=== PATIENT | male | born 1945 | race Caucasian/White ===

== ENCOUNTER 2016-10-07 13:28 | Emergency (ER) | payer OTHER ==
[~2016-10-07] VITALS: Ht 182.9 cm; Wt 65.0 kg
[2016-10-07 13:42] VITALS: BP 181/78; PULSE 88; RESP 16; TEMP 98; O2SAT 97
[2016-10-07] MEDS ORDERED: PROPARACAINE HCL 0.5% OPHT SOLN 15 ML BTL RIGHT EYE ONE (13:45)
--- NOTE | 2016-10-07 13:49 | PD ---
HPI Chief Complaint: Eye Problems/Injury Time Seen by Provider: 13:44 Travel History International Travel<30 days: No Contact w/Intl Traveler<30days: No History of Present Illness HPI Patient comes emergency Department from assisted living facility where he resides complaining of right eye pain. Patient is legally blind normally cannot see much secondary to cataracts. Patient states last night he had to go to the bathroom and could not anyone to help and after waiting as long as he could he finally tried getting up by himself and became unsteady on his feet and fell hitting his right eye. Patient reports associated headache and photosensitivity. Pain is worse with movement of his right eye. Describes pain as a burning like sensation. Denies any chest pain pre-or post fall, loss consciousness, shortness of breath, fevers, or neck pain. Patient is on Plavix and aspirin. Patient has a history of type 2 diabetes, sepsis, subacute osteomyelitis, BPH, blindness, hyperlipidemia, CAD, hypertension, MRSA, pacemaker, and anemia. PFSH Past Medical History Atrial Fibrillation: Yes Social History Alcohol Use: No Tobacco Use: No Substance Use: No Allergies-Medications (Allergen,Severity, Reaction): Coded Allergies: Scallop (Verified Allergy, Unknown, 10/07/16) Fleetwood (Verified Allergy, Unknown, 10/07/16) Sulfa (Verified Allergy, Unknown, 10/07/16) Reported Meds & Prescriptions Reported Meds & Active Scripts Active Erythromycin Opth Oint 5 Mg/Gm Oint 1 Applic RIGHT EYE QID Reported Vitamin B Complex (B-Complex Vitamins) 1 Tab 1 Tab PO DAILY Thiamine Hydrochloride (Thiamine HCl) 1 Pow Pow 100 Mg PO DAILY Selenium 200 Mcg Tab 200 Mg PO DAILY Entresto (Sacubitril-Valsartan) 24-26 Mg Tab 1 Tab PO DAILY Percocet (Oxycodone-Acetaminophen) 5-325 mg Tab 2 Tab PO Q6H PRN Mexiletine (Mexiletine HCl) 150 Mg Cap 150 Mg PO Q8H Melatonin 5 Mg Tab 3 Mg PO HS Magnesium Oxide 500 Mg Tab 500 Mg PO BID Lisinopril 2.5 Mg Tab 2.5 Mg PO DAILY Levemir Inj (Insulin Detemir) 1,000 unit/ 10 ML Vial 8 Units SQ DAILY Do not mix with any other Insulin. Furosemide 20 Mg Tab 20 Mg PO DAILY Ferrous Sulfate 325 Mg Tab 325 Mg PO DAILY Clopidogrel (Clopidogrel Bisulfate) 75 Mg Tab 75 Mg PO DAILY Cilostazol 50 Mg Tab 50 Mg PO BID Vitamin D-3 (Cholecalciferol) 1,000 Unit Tab 5,000 Units PO DAILY Carvedilol 3.125 Mg Tab 3.125 Mg PO BID Atorvastatin (Atorvastatin Calcium) 80 Mg Tab 80 Mg PO HS Aspirin 81 Mg Chew 81 Mg CHEW DAILY Review of Systems Except as stated in HPI: all other systems reviewed are Neg Physical Exam Narrative GENERAL: Well-developed, well nourished, in no acute distress, and non-ill appearing. SKIN: Focused skin assessment warm and dry. Multiple areas of ecchymosis noted right lower extremity with wounds are covered with dry clean dressings right lower extremity and bilateral feet. PICC line noted right upper extremity. HEAD: Atraumatic. Normocephalic. EYES: Pupils equal and round. EOMI. No scleral icterus. No injection or drainage. Patient reports worsening pain and light right eye. Apportionment corneal abrasion noted. No obvious foreign body. No hyphema. Patient reports tenderness along the left lower lateral periorbital. ENT: No nasal bleeding or discharge. Mucous membranes pink and moist. NECK: Trachea midline. No midline tenderness or crepitus over cervical spine.. Supple. No nuclear rigidity. RESPIRATORY: No accessory muscle use. No respiratory distress. MUSCULOSKELETAL: No obvious deformities. No clubbing. No cyanosis. No edema. Full range of motion. NEUROLOGICAL: Awake and alert. No obvious cranial nerve deficits. Motor grossly within normal limits. Normal speech. PSYCHIATRIC: Appropriate mood and affect; insight and judgment normal. Data Data Last Documented VS Vital Signs Date Time Temp Pulse Resp B/P Pulse Ox O2 Delivery O2 Flow Rate FiO2 10/07/16 16:00 84 16 178/76 97 Room Air 10/07/16 13:42 98.0 Orders Proparacaine 0.5% Opth Soln (Alcaine 0.5 (10/07/16 13:45) Ct Brain W/O Iv Contrast(Rout) (10/07/16 ) Ct Facial Bones W/O Iv Cont (10/07/16 ) Ct Cerv Spine W/O Contrast (10/07/16 ) Oxycodone-Acetamin 5-325 Mg (Percocet (10/07/16 15:45) MDM Medical Decision Making Medical Screen Exam Complete: Yes Emergency Medical Condition: Yes Interpretation(s) CT head read by the radiologist shows: Right parietal lobe encephalomalacia. No acute intracranial findings. CT cervical spine read by the radiologist shows: 1. No evidence of fracture. 2. Multilevel degenerative findings. 3. Bilateral pleural effusions partially visualized. CT maxillofacial read by radiologist shows: No evidence of fracture. Differential Diagnosis Fracture, intracranial hemorrhage, strain, abrasion, ulcer, foreign body, other Narrative Course Patient was given a dose of his home Percocet for pain control. Patient reports he last had this around 9:00 this morning. The patient has a small corneal abrasion. The patient was Martinez lamp examined and stained. No evidence of foreign body by history or exam. There is no evidence of iritis, glaucoma, preseptal cellulitis, periorbital or orbital cellulitis. The diagnosis and problem was discussed with the patient, and the need for frequent ophthalmologic antibiotics was discussed with the patient. The patient was instructed to follow up with ophthalmology next 2-3 days or return here if worsened, increased pain, decreased vision, swelling around the eye or as needed. The patient agreed with plan. Patient presents with closed head injury. There was no evidence of cranial or intracranial injury noted on CT of the head and no evidence of fracture or injury to cervical spine on C-spine CT. The patient has been behaving normally and no notable altered mental status. Zak score of 15. The neurologic exam is normal. The patient is awake and aware and motor sensory exams are normal. There is no clinical evidence to support intracranial injury or bleed. There is no significant jaw pain or tenderness. There is no malocclusion noted subjectively or objectively. There is no bruising under the tongue. There is no significant swelling, tenderness, bruising or deformity of the face to suggest fractures of face or nose. There is no nasal discharge or bleeding and no septal hematoma. There are no visual problems or significant bruising under eyes or midface. There is no evidence to suggest entrapment and there is no facial nerve palsy. There is no flattening of the cheek or altered sensation underneath the eye. The facial bones are stable and nonmobile. The airway is intact. CT of the facial bones revealed no evidence of fracture or acute injury. Findings were discussed with the patient. The patient will follow up with PCP. Patient in no obvious distress upon re-evaluation. All pertinent Radiology result(s) discussed with patient. Discussed patient with Dr. Veronica, who saw and evaluated the patient and is in agreement with plan of care and disposition. Any questions/concerns in reference to patient diagnosis/condition discussed and clarified prior to patient's discharge. Reinforced sheer importance of close follow up with patient's primary physician or primary care clinic. Instructed patient to return to ED immediately, if symptoms return/worsen. Pt showed understanding of above instructions. Further instructions and recommendations were detailed in discharge paperwork. Pt left without difficulty out of ED at discharge. Procedures Procedure Narrative Verbal consent was obtained. Affected eye was anesthetized using proparacaine. Fluorescein staining and Wood lamp exam performed with uptake seen. Negative Bandar sign. No hyphema, hyperemia, or rust ring. Eyelid was everted with no foreign body noted. No tenderness bilateral temporal arteries to palpation. Intraocular eye pressure was measured 3 and found to be 12, 14, and 14. Patient tolerated procedure well. There is no complications. Diagnosis Primary Impression: Corneal abrasion, right Qualified Code: S05.01XA - Corneal abrasion, right, initial encounter Additional Impressions: Closed head injury Qualified Code: S09.90XA - Closed head injury, initial encounter Encephalomalacia Pleural effusion Referrals: Anabelle Wang MD Patient Instructions: Corneal Abrasion (ED), General Instructions, Head Injury (ED) Additional Instructions: Follow-up with your primary care physician and/or topstitcher lockstitch in 2-3 days for reevaluation. Follow-up through primary care doctor for evaluation of incidental findings noted on CT today. Take all medication as prescribed. Return to the emergency department if symptoms get worse. Med/Other Pt SpecificInfo: Prescription(s) given Scripts Erythromycin Opth Oint 5 Mg/Gm Oint1 Applic RIGHT EYE QID #1 TUBE Ref 0 Prov:Aspen Veronica DO 10/07/16 Disposition: 01 DISCHARGE HOME Condition: Stable Bladimir Foster October 07, 2016 13:49
[2016-10-07] MEDS ORDERED: MAGN500T2 PO (15:12)
[2016-10-07] MEDS ORDERED: SELE1TAB PO (15:12)
[2016-10-07] MEDS ORDERED: MEXI150C PO (15:12)
[2016-10-07] MEDS ORDERED: SACU1TAB PO (15:12)
[2016-10-07] MEDS ORDERED: MELA5TAB15 PO (15:12)
[2016-10-07] MEDS ORDERED: LISI2.5T3 PO (15:12)
[2016-10-07] MEDS ORDERED: LEVEMIR SQ (15:12)
[2016-10-07] MEDS ORDERED: CILO50TA PO (15:12)
[2016-10-07] MEDS ORDERED: VITATAB11 PO (15:12)
[2016-10-07] MEDS ORDERED: VITA10003 PO (15:12)
[2016-10-07] MEDS ORDERED: PERC5TAB12 PO (15:12)
[2016-10-07] MEDS ORDERED: FURO20TA PO (15:12)
[2016-10-07] MEDS ORDERED: FERR325T PO (15:12)
[2016-10-07] MEDS ORDERED: CLOP75TA PO (15:12)
[2016-10-07] MEDS ORDERED: ATOR1TAB18 PO (15:12)
[2016-10-07] MEDS ORDERED: [UNRECOGNIZED DRUG - CODE] PO (15:12)
[2016-10-07] MEDS ORDERED: CARV3.12 PO (15:12)
[2016-10-07] MEDS ORDERED: ASPI81CH CHEW (15:12)
--- NOTE | 2016-10-07 15:14 | RADRPT ---
EXAM DATE/TIME: 10/07/2016 14:24 [facility] COMPARISON: No previous studies available for comparison. INDICATIONS : Fall today, contusion to right eye. RADIATION DOSE: 28.61 CTDIvol (mGy) MEDICAL HISTORY : Cardiovascular disease. Hypertension. SURGICAL HISTORY : None. ENCOUNTER: Initial ACUITY: 1 day PAIN SCALE: 5/10 LOCATION: Right frontal head TECHNIQUE: Multiple contiguous axial images were obtained of the head. Using automated exposure control and adj ustment of the mA and/or kV according to patient size, radiation dose was kept as low as reasonably a chievable to obtain optimal diagnostic quality images. FINDINGS: CEREBRUM: There is evidence of focal encephalomalacia in the right parietal lobe indicating old insult. The teddy tricles are normal for age. No evidence of midline shift, mass lesion, hemorrhage or acute infarctio n. No extra-axial fluid collections are seen. POSTERIOR FOSSA: The cerebellum and brainstem are intact. The 4th ventricle is midline. The cerebellopontine angle i s unremarkable. EXTRACRANIAL: The visualized portion of the orbits is intact. SKULL: The calvaria is intact. No evidence of skull fracture. CONCLUSION: Right parietal lobe encephalomalacia. No acute intracranial findings. Tristan Meyer MD on October 07, 2016 at 15:11 Board Certified Radiologist. This report was verified electronically.
--- NOTE | 2016-10-07 15:18 | RADRPT ---
EXAM DATE/TIME: 10/07/2016 14:24 [facility] COMPARISON: No previous studies available for comparison. INDICATIONS : Fall today, contusion to right eye. RADIATION DOSE: 22.30 CTDIvol (mGy) MEDICAL HISTORY : Hypertension. Cardiovascular disease SURGICAL HISTORY : None. ENCOUNTER: Initial ACUITY: 1 day PAIN SCALE: 5/10 LOCATION: Bilateral neck TECHNIQUE: Volumetric scanning of the cervical spine was performed. Multiplanar reconstructions in the sagittal, coronal and oblique axial planes were performed. Using automated exposure control and adjustment o f the mA and/or kV according to patient size, radiation dose was kept as low as reasonably achievable to obtain optimal diagnostic quality images. FINDINGS: VERTEBRAE: Normal vertebral body height. ALIGNMENT: No evidence of subluxation. C2-C3: Severe left-sided facet arthrosis. No evidence of focal disc protrusion. Central canal normal diamete r. Neural foraminal diameters within normal limits. C3-C4: Severe bilateral facet arthrosis and broad-based disc osteophyte complex. Moderate bilateral neural f oraminal narrowing. Central canal diameter within normal limits. C4-C5: Broad-based disc osteophyte complex. Moderate bilateral facet arthrosis. Moderate severity right and mild left neural foraminal narrowing. Central canal diameter within normal limits. C5-C6: Broad-based disc osteophyte complex and bilateral facet arthrosis. Moderate right neural foraminal na rrowing. Central canal diameter within normal limits. C6-C7: Severe left-sided facet arthrosis. Central canal diameter within normal limits. Neural foraminal diam eters within normal limits. C7-T1: The bony spinal canal is normal in size. No evidence of disc bulge or herniation. The neural forami na are bilaterally patent. CONCLUSION: 1. No evidence of fracture. 2. Multilevel degenerative findings. 3. Bilateral pleural effusions partially visualized. Tristan Meyer MD on October 07, 2016 at 15:12 Board Certified Radiologist. This report was verified electronically.
--- NOTE | 2016-10-07 15:21 | RADRPT ---
EXAM DATE/TIME: 10/07/2016 14:24 [facility] COMPARISON: No previous studies available for comparison. INDICATIONS : Fall today, contusion to right eye. RADIATION DOSE: 59.58 CTDIvol (mGy) MEDICAL HISTORY : Hypertension. Cardiovascular disease SURGICAL HISTORY : None. ENCOUNTER: Initial ACUITY: 1 day PAIN SCORE: 8/10 LOCATION: Right eye TECHNIQUE: Volumetric scanning of the facial bones was performed. Using automated exposure control and adjustme nt of the mA and/or kV according to patient size, radiation dose was kept as low as reasonably achiev able to obtain optimal diagnostic quality images. FINDINGS: ORBITS: Right-sided preorbital soft tissue edema. The orbital and infraorbital osseous structures are intact. The retroconal structures have a normal configuration. No radiopaque foreign bodies are seen. NASAL BONE: The nasal bone and maxillary spine are intact ZYGOMATIC ARCHES: Symmetric without evidence of fracture. SINUSES: Mild ethmoid and maxillary sinus the coastal thickening. NASAL CAVITY: The nasal septum is intact and midline. The lacrimal ducts are intact. SOFT TISSUES: No radiopaque foreign bodies seen. No soft-tissue swelling is seen. INTRACRANIAL: No intracranial air seen. CRIBIFORM PLATE: Grossly intact. CONCLUSION: No evidence of fracture. Tristan Meyer MD on October 07, 2016 at 15:17 Board Certified Radiologist. This report was verified electronically.
[2016-10-07] MEDS ORDERED: ERYTOIN10 RIGHT EYE (15:41)
[2016-10-07] MEDS ORDERED: oxyCODONE/ACETAMINOPHEN 5 MG/325 MG TAB PO ONE (15:45)
[2016-10-07 16:00] VITALS: BP 178/76; PULSE 84; RESP 16; O2SAT 97
== END 2016-10-07 17:50 | disposition home or self-care (01) ==
LOC: NEPE 13:28
DX: S05.01XA Injury of conjunctiva and corneal abrasion without foreign body, right eye, initial encounter (principal); S09.90XA Unspecified injury of head, initial encounter; G93.89 Other specified disorders of brain; J90 Pleural effusion, not elsewhere classified; W19.XXXA Unspecified fall, initial encounter; Y92.199 Unspecified place in other specified residential institution as the place of occurrence of the external cause
CPT/HCPCS: 70450; 70486; 72125